=== PATIENT | female | born 1985 | race Caucasian/White ===

== ENCOUNTER 2016-11-12 17:09 | Emergency (ER) | payer SELFPAY ==
[~2016-11-12] VITALS: Ht 160 cm; Wt 56.7 kg
[~2016-11-12 17:09] MED LIST: ACET325T96 PO; BUTA1CAP17 PO; POTA99TA
[2016-11-12 17:17] VITALS: TEMP 36.8; Ht 160 cm; Wt 56.7 kg
[2016-11-12] MEDS ORDERED: ALPRAZOLAM 0.5 MG TAB PO STA (17:26)
[2016-11-12 17:50] LABS: ALT/SGPT 25 U/L (12-78); AST/SGOT 15 U/L (15-37); BLOOD UREA NITROGEN 9 mg/dl (7-18); BUN/CREATININE RATIO 10.7 (10-20); CARBON DIOXIDE 26 mmol/L (21-32); CHLORIDE 106 mmol/L (98-107); CREATININE 0.82 mg/dl (0.60-1.20); GLUCOSE 101 mg/dl (70-99); POTASSIUM 3.5 mmol/L (3.5-5.1); SODIUM 139 mmol/L (136-145)
[2016-11-12] MEDS ORDERED: NAPR1TAB9 PO (17:51)
[2016-11-12 17:53] LABS: ALKALINE PHOSPHATASE 64 U/L (45-117)
--- NOTE | 2016-11-12 17:59 | DIAGNOSTIC IMAGING REPORT ---
CHEST ONE VIEW PORTABLE CLINICAL HISTORY: Chest pain. COMPARISON STUDY: Chest radiograph December 26, 2015. FINDINGS: Lung volumes are normal. Lungs are clear. There is no pneumothorax or pleural effusion. Cardiac size is normal. Mediastinal contours are normal. There is no evidence of pulmonary edema. IMPRESSION: No acute cardiopulmonary findings. Electronically signed by: Scott Allison M.D. 11/12/2016 5:57 PM Dictated Date/Time: 11/12/2016 5:56 PM
[2016-11-12 18:06] LABS: PREG INTERNAL NEGATIVE QC NEG CLEAR BACKGROUND; PREG INTERNAL POSITIVE QC POS CONTROL LINE
[2016-11-12 18:07] LABS: BASO % 0.3 %; BASO ABS # 0.02 K/uL (0-0.2); COMPLETE YES; EOS % 1.8 %; HEMATOCRIT 40.6 % (37-47); LYMPH % 41.6 %; LYMPH ABS # 2.56 K/uL (1.2-3.4); MEAN CELL VOLUME 95.5 fL (80-100); MEAN CORPUSCULAR HEMOGLOBIN 33.6 pg (25-34); MEAN CORPUSCULAR HGB CONC 35.2 g/dl (32-36); MEAN PLATELET VOLUME 9.6 fL (7.4-10.4); MONO % 12.7 %; NEUT % 43.6 %; PLATELET COUNT 266 K/uL (130-400); RED BLOOD COUNT 4.25 M/uL (4.2-5.4); WHITE BLOOD COUNT 6.15 K/uL (4.8-10.8)
[2016-11-12] MEDS ORDERED: KETOROLAC TROMETHAMINE 30 MG/ML VIAL IV STA (18:33)
[2016-11-12] MEDS ORDERED: ONDANSETRON INJ 2 MG/ML 2 ML VIAL IV STA (18:33)
[2016-11-12] MEDS ORDERED: OXYCODONE/ACETAMINOPHEN 5-325 TAB PO ONE (19:45)
[2016-11-12 19:52] VITALS: BP 108/76; PULSE 84; O2SAT 97
--- NOTE | 2016-11-12 20:10 | EMERGENCY ROOM VISIT NOTE ---
History First contact with patient: 17:14 Chief Complaint: CHEST PAIN Stated Complaint: CHEST PAIN, NECK PAIN Nursing Triage Summary: left sided chest pain for 3 days that gets worse with laying down with nausea and tightness in her chest and a cough History of Present Illness The patient is a 31 year old female who presents to the Emergency Room with complaints of chest pain with nausea that is worse with breathing for the past few days that is steadily getting worse described as discomfort, 6 out of 10 midsternal. Nothing makes it better. Patient does smoke. There is a family history of DVTs. Her grandmother on her mother's side had a heart attack in her 40s. Patient denies recent travel, control, fever, chills, productive cough, leg pain or swelling, abdominal pain, radiating pain, numbness , tingling. Patient has been more stressed lately and has been suffering over the loss of her dog. Review of Systems See HPI for pertinent positives & negatives. A total of 10 systems reviewed and were otherwise negative. Past Medical/Surgical History Medical Problems: (1) ACUTE APPENDICITIS NOS (2) Asthma (3) DISLOCATION JAW-CLOSED (4) Esophageal Reflux (5) Ovarian Cyst Nec/Nos Family History Cancer Diabetes mellitus FH: heart disease FHx: gallbladder disease Hypertension Pyelonephritis Social History Smoking Status: Current Every Day Smoker Alcohol Use: occasionally Drug Use: none Marital Status: in relationship Housing Status: lives with significant other Occupation Status: employed Current/Historical Medications Scheduled Multivitamin (Multivitamin), 1 TAB PO DAILY Scheduled PRN Naproxen (Aleve), 220 MG PO DIRECTED PRN for Pain Miscellaneous Medications Potassium (Potassium) Allergies Coded Allergies: Hydromorphone (Verified Allergy, Mild, 11/12/16) Lorazepam (Verified Allergy, Unknown, UNKNOWN, 12/26/15) Morphine (Verified Allergy, Unknown, 11/12/16) Physical Exam Vital Signs Date Time Temp Pulse Resp B/P Pulse Ox O2 Delivery O2 Flow Rate FiO2 11/12/16 19:52 84 20 108/76 97 Room Air 11/12/16 18:35 74 20 114/75 98 Room Air 11/12/16 17:46 75 20 114/75 96 Room Air 11/12/16 17:30 Room Air 11/12/16 17:28 Room Air 11/12/16 17:27 73 11/12/16 17:17 36.8 79 20 139/96 100 Room Air Physical Exam VITALS: Vitals are noted on the nurse's note and reviewed by myself. Vital signs stable. GENERAL: Pleasant female tearful, in no acute distress, nondiaphoretic, well- developed well-nourished. SKIN: The skin was without rashes, erythema, edema, or bruising. There is no tenting of the skin. Capillary reflex less than 2 seconds. HEAD: Normocephalic atraumatic. EARS: External auditory canals clear, tympanic membranes pearly cintron without erythema or effusion bilaterally. EYES: Pupils equal round and reactive to light and accommodation. Conjunctivae without injection, sclerae without icterus. Extraocular movements intact. NOSE: Patent, turbinates without inflammation or discharge. MOUTH: Mucous membranes moist. Pharynx without erythema or exudate. Uvula midline. Airway patent. Tongue does not deviate. NECK: Supple without nuchal rigidity. No lymphadenopathy. No thyromegaly. Cervical spine is nontender. No JVD. HEART: Regular rate and rhythm without murmurs gallops or rubs. Chest nontender to palpation LUNGS: Clear to auscultation bilaterally without wheezes, rales or rhonchi. No dullness to percussion. No retractions or accessory muscle use. ABDOMEN: Positive bowel sounds x 4. Normal tympanic percussion. Soft, nontender, without masses or organomegaly. Uribe sign negative. No guarding or rebound tenderness. MUSCULOSKELETAL: No muscle atrophy, erythema, or edema noted. NEURO: Patient was alert and oriented to person place and time. Normal sensation to light and sharp touch. No focal neurological deficits. Medical Decision & Procedures Laboratory Results 11/12/16 16:25 Red Blood Count 4.25, Mean Corpuscular Volume 95.5, Mean Corpuscular Hemoglobin 33.6, Mean Corpuscular Hemoglobin Concent 35.2, Mean Platelet Volume 9.6, Neutrophils (%) (Auto) 43.6, Lymphocytes (%) (Auto) 41.6, Monocytes (%) (Auto) 12.7, Eosinophils (%) (Auto) 1.8, Basophils (%) (Auto) 0.3, Neutrophils # (Auto ) 2.68, Lymphocytes # (Auto) 2.56, Monocytes # (Auto) 0.78, Eosinophils # (Auto ) 0.11, Basophils # (Auto) 0.02 11/12/16 16:25 Test 11/12/16 16:25 11/12/16 17:32 White Blood Count 6.15 K/uL (4.8-10.8) Red Blood Count 4.25 M/uL (4.2-5.4) Hemoglobin 14.3 g/dL (12.0-16.0) Hematocrit 40.6 % (37-47) Mean Corpuscular Volume 95.5 fL (80-100) Mean Corpuscular Hemoglobin 33.6 pg (25-34) Mean Corpuscular Hemoglobin Concent 35.2 g/dl (32-36) Platelet Count 266 K/uL (130-400) Mean Platelet Volume 9.6 fL (7.4-10.4) Neutrophils (%) (Auto) 43.6 % Lymphocytes (%) (Auto) 41.6 % Monocytes (%) (Auto) 12.7 % Eosinophils (%) (Auto) 1.8 % Basophils (%) (Auto) 0.3 % Neutrophils # (Auto) 2.68 K/uL (1.4-6.5) Lymphocytes # (Auto) 2.56 K/uL (1.2-3.4) Monocytes # (Auto) 0.78 K/uL (0.11-0.59) Eosinophils # (Auto) 0.11 K/uL (0-0.5) Basophils # (Auto) 0.02 K/uL (0-0.2) RDW Standard Deviation 44.5 fL (36.4-46.3) RDW Coefficient of Variation 12.8 % (11.5-14.5) Immature Granulocyte % (Auto) 0.0 % Immature Granulocyte # (Auto) 0.00 K/uL (0.00-0.02) Anion Gap 7.0 mmol/L (3-11) Est Creatinine Clear Calc Drug Dose 82.2 ml/min Estimated GFR () 110.5 Estimated GFR (Non- 95.4 BUN/Creatinine Ratio 10.7 (10-20) Calcium Level 9.0 mg/dl (8.5-10.1) Total Bilirubin 0.4 mg/dl (0.2-1) Direct Bilirubin < 0.1 mg/dl (0-0.2) Aspartate Amino Transf (AST/SGOT) 15 U/L (15-37) Alanine Aminotransferase (ALT/SGPT) 25 U/L (12-78) Alkaline Phosphatase 64 U/L (45-117) Total Protein 8.9 gm/dl (6.4-8.2) Albumin 4.8 gm/dl (3.4-5.0) Lipase 137 U/L (73-393) Human Chorionic Gonadotropin, Qual NEG (NEG) Bedside D-Dimer 271 ng/mlFEU (0-450) Bedside Troponin I 0.000 ng/ml (0-0.045) Medications Administered Medications (Trade) Dose Ordered Sig/Helen Route Start Time Stop Time Status Last Admin Dose Admin Alprazolam (Xanax Tab) 0.5 mg NOW STAT PO 11/12/16 17:26 11/12/16 17:29 DC 11/12/16 17:35 0.5 MG Ondansetron HCl (Zofran Inj) 4 mg NOW STAT IV 11/12/16 18:33 11/12/16 18:34 DC 11/12/16 18:51 4 MG Ketorolac Tromethamine (Toradol Inj) 30 mg NOW STAT IV 11/12/16 18:33 11/12/16 18:34 DC 11/12/16 18:51 30 MG Oxycodone/ Acetaminophen (Percocet 5-325mg Tab) 1 tab NOW ONCE PO 11/12/16 19:45 11/12/16 19:46 DC 11/12/16 19:51 1 TAB ED Course Prior records/ancillary studies reviewed. Triage Nursing notes reviewed. Additional history obtained from family. The patient's history was concerning for chest pain. Differential diagnosis: Etiologies such as cardiac ischemia, aortic dissection, pulmonary embolism, pneumonia, pneumothorax, musculoskeletal, infections, pericarditis, myocarditis , esophageal rupture, gastrointestinal, as well as others were entertained. Physical examination: As above. ER treatment provided: Xanax On reassessment the patient felt better. Diagnostic interpretation by me: The electrocardiogram was negative for pathologic change. Normal sinus, normal intervals, no acute ST-T wave changes. Impression normal sinus rhythm interpreted by myself The labs revealed negative troponin. Negative d-dimer Imaging studies: Chest x-ray with no acute consolidation, pneumothorax or free air per my interpretation Exam and history seem consistent with noncardiac chest pain. Patient is well- appearing. She is neurovascularly and neurologically intact. Unremarkable workup as above. She is advised to rest, stay well hydrated, decrease stress and follow-up family care in a few days or here in the ER sooner for chest pain , difficulty breathing, worsening signs or symptoms or as needed.By the evaluation outlined above emergent etiologies such as cardiac ischemia, aortic dissection, pulmonary embolism, pneumonia, pneumothorax, infections, pericarditis, myocarditis, gastrointestinal, as well as others were deemed relatively unlikely. The pt informed about the findings as listed above. All questions were answered and pleased with the treatment. Return instructions were outlined and the patient was discharged in stable condition. Referral: The patient was referred back to primary care physician for follow-up in 2 to 3 days for a recheck of the current condition. Case reviewed with my attending Medical Decision As above Impression Primary Impression: Non-cardiac chest pain Departure Information Dispostion Home / Self-Care Condition GOOD Referrals No Doctor, Assigned (PCP) Patient Instructions [facility] Additional Instructions Ibuprofen(Motrin, Advil) may be used for fever or pain. Use 600mg every six hours as needed. Take with food. Avoid using more than 2400mg in a 24 hour period. Do not use 2400mg per day for more than three consecutive days without physician direction. Prolonged inappropriate use can lead to stomach upset or ulcers. (AND/OR) Acetaminophen(Tylenol) may be used for fever or pain. Use 1000mg every six hours as needed. Avoid using more than 3000mg in a 24 hour period. Rest and drink plenty of fluids as tolerated. Continue current medications. Avoid strenuous activities and anything that worsens your pain. Resume normal activities once your symptoms resolve. Return to the ER immediately for worsening or persistent chest pain, abdominal pain, vomiting, fevers, chest pains, difficulty breathing, worsening of your condition, or as needed. Follow up with your primary physician in 2-3 days for a recheck of your current condition.
[2016-11-12] MEDS ORDERED: PERCOCET HOME PACK PO ONE (20:15)
[2017-05-06] MEDS ORDERED: MULT-506 PO (17:10)
[2017-06-07] MEDS ORDERED: AMOX500C3 PO (02:06)
== END 2016-11-12 20:23 | disposition home or self-care (01) ==
LOC: C.EDB 17:09
DX: R07.89 Other chest pain (principal); J45.909 Unspecified asthma, uncomplicated; Z83.3 Family history of diabetes mellitus; Z82.49 Family history of ischemic heart disease and other diseases of the circulatory system; F17.200 Nicotine dependence, unspecified, uncomplicated

== ENCOUNTER 2017-04-01 19:29 | Emergency (ER) | payer SELFPAY ==
[~2017-04-01] VITALS: Ht 167.6 cm; Wt 51.5 kg
[~2017-04-01 19:29] MED LIST changes: -ACET325T96 PO; -BUTA1CAP17 PO; +NAPR1TAB9 PO
[2017-04-01 19:39] VITALS: TEMP 36.8; Ht 167.6 cm; Wt 51.5 kg
[2017-04-01] MEDS ORDERED: SODIUM CHLORIDE 0.9% 1000ML 1,000 ML IV STA (19:53)
[2017-04-01] MEDS ORDERED: ONDANSETRON INJ 2 MG/ML 2 ML VIAL IV STA (19:53)
[2017-04-01] MEDS ORDERED: KETOROLAC TROMETHAMINE 30 MG/ML VIAL IV STA (19:53)
[2017-04-01 20:30] LABS: BASO % 0.4 %; BASO ABS # 0.03 K/uL (0-0.2); COMPLETE YES; EOS % 1.3 %; HEMATOCRIT 42.4 % (37-47); IG% 0.3 %; LYMPH % 38.2 %; LYMPH ABS # 2.83 K/uL (1.2-3.4); MEAN CELL VOLUME 97.2 fL (80-100); MEAN PLATELET VOLUME 9.8 fL (7.4-10.4); MONO % 7.4 %; NEUT % 52.4 %; PLATELET COUNT 280 K/uL (130-400); RED BLOOD COUNT 4.36 M/uL (4.2-5.4); WHITE BLOOD COUNT 7.41 K/uL (4.8-10.8)
[2017-04-01 20:38] LABS: BUN/CREATININE RATIO 5.5 (10-20); CALCIUM 9.5 mg/dl (8.5-10.1); CREATININE 0.78 mg/dl (0.60-1.20); POTASSIUM 3.6 mmol/L (3.5-5.1)
--- NOTE | 2017-04-01 20:53 | DIAGNOSTIC IMAGING REPORT ---
ABDOMEN 2VIEW W/PA CHEST RTN HISTORY: 32 years-old Female acute abdominal pain COMPARISON: Portable chest radiograph 11/12/2016 TECHNIQUE: Frontal view of the chest with erect and supine views of the abdomen FINDINGS: Cardiomediastinal and hilar silhouettes are within normal limits. No pneumothorax, pleural effusion, focal airspace consolidation or overt pulmonary edema. The bones are grossly intact. No pneumoperitoneum on the upright projection. Bowel gas pattern is nonobstructive. Negative for urolithiasis. Probable phleboliths are noted within the pelvis. No organomegaly. IMPRESSION: 1. No acute cardiopulmonary process. 2. Nonobstructive bowel gas pattern without pneumoperitoneum. 3. No urolithiasis identified. The above report was generated using voice recognition software. It may contain grammatical, syntax or spelling errors. Electronically signed by: Fuad Hernandez M.D. 04/01/2017 8:52 PM Dictated Date/Time: 04/01/2017 8:50 PM
--- NOTE | 2017-04-01 21:45 | DIAGNOSTIC IMAGING REPORT ---
PELVIC COMPLETE NON OB HISTORY: 32 years-old Female acute right lower quadrant abdominal pain COMPARISON: Pelvic ultrasound 08/30/2013 TECHNIQUE: Multiple real-time sonographic images of the deep pelvic structures were obtained transabdominally and transvaginally assessing grayscale appearance, color and spectral flow. FINDINGS: Study is limited secondary to obscuring bowel gas. Transabdominal: Uterus is not well seen. Transvaginal: Retroflexed uterus measures 6.9 x 2.7 x 4.5 cm. Endometrium is homogeneous, 0.3 cm. No focal myometrial mass lesions identified. There is trace free pelvic fluid in the cul-de-sac. Right ovary measures 4.0 x 1.7 x 3.2 cm containing multiple follicles. Echogenic structure within the right ovary is seen measuring up to 0.7 cm without posterior acoustic shadowing or internal vascularity. Arterial inflow and venous outflow documented within the right ovary. Left ovary measures 3.6 x 1.4 x 2.4 cm containing normal-appearing follicles. Arterial inflow and venous outflow is documented within the left ovary. IMPRESSION: 1. No evidence of ovarian torsion. 2. Retroflexed uterus without endometrial thickening. 3. 0.7 cm echogenic structure of the right ovary suggests involuting/hemorrhagic follicle. 4. Trace free pelvic fluid, likely physiologic. The above report was generated using voice recognition software. It may contain grammatical, syntax or spelling errors. Electronically signed by: Fuad Hernandez M.D. 04/01/2017 9:44 PM Dictated Date/Time: 04/01/2017 9:40 PM
[2017-04-01 21:51] LABS: URINE APPEARANCE CLEAR (CLEAR); URINE BILIRUBIN NEG (NEG); URINE COLOR YELLOW; URINE NITRITE NEG (NEG); URINE PH 7.5 (4.5-7.5); URINE SPECIFIC GRAVITY 1.005 (1.000-1.030); UROBILINOGEN NEG (NEG); ZZUR CULT IF INDIC CLEAN CATCH NO
[2017-04-01 21:52] LABS: MANUAL MICROSCOPIC REQUIRED? NO; REVIEW REQ? NO
[2017-04-01 22:20] VITALS: BP 133/75; PULSE 67; O2SAT 99
--- NOTE | 2017-04-02 01:26 | EMERGENCY ROOM VISIT NOTE ---
History Report prepared by Maryellen: Marissa Hauser Under the Supervision of: Dr. Tavo Riojas D.O. First contact with patient: 19:44 Chief Complaint: ABDOMINAL PAIN Stated Complaint: CHEST AND BELLY PAIN History of Present Illness The patient is a 32 year old female who presents to the Emergency Room with complaints of worsening RLQ abdominal pain starting 3 days ago. She first noticed the pain when she woke up in the morning 3 days ago. Since then, the pain has worsened. It worsens around 20 minutes after eating and with heavy lifting. As the pain has worsened, even doing light housework worsens her pain. She has felt some swelling in her abdomen in the RLQ. She has a history of appendectomy. She has had ovarian torsion in the past, but her current pain is dissimilar. She still has her gallbladder. She just finished her menstrual cycle. She is also complaining of right lower back pain. She notes that this has been there for the past 2 years. The pain radiates into her right gluteus. Movement along with twisting and turning exacerbates the pain. She notes that this is unchanged from what she has had before in the past. She has no new weakness or numbness. She is able to void. She is able to move her bowels. She also started having chest pain starting 1300 today. She describes the pain as a heaviness. She also had SOB which is typical for her when she becomes anxious. She denies any dysuria, calf swelling, vaginal bleeding, or vaginal discharge. She denies any recent travel or surgery, hemoptysis, swelling of legs, cancer, or previous clots. She denies any history of diabetes , heart disease, high cholesterol, or CAD. She denies any history of sudden in her family. She has a history of asthma. She admits to occasional alcohol use. She denies any drug use. She does smoke. She is not employed. She is not on control. Source of History: patient Onset: 3 days ago Position: abdomen (RLQ) Quality: other (pain) Timing: worsening Modifying Factors (Worsening): eating, movement Associated Symptoms: + chest pain, + SOB, + numbness (right hand), No urinary symptoms Note: Pt reports right arm pain. Pt denies calf swelling, vaginal bleeding, vaginal discharge. Review of Systems See HPI for pertinent positives & negatives. A total of 10 systems reviewed and were otherwise negative. Past Medical & Surgical Medical Problems: (1) ACUTE APPENDICITIS NOS (2) Asthma (3) DISLOCATION JAW-CLOSED (4) Esophageal Reflux (5) Ovarian Cyst Nec/Nos Family History Cancer Diabetes mellitus FH: heart disease FHx: gallbladder disease Hypertension Pyelonephritis Social History Smoking Status: Current Every Day Smoker Alcohol Use: occasionally Drug Use: none Marital Status: in relationship Housing Status: lives with significant other Occupation Status: employed Current/Historical Medications Scheduled Multivitamin (Multivitamin), 1 TAB PO DAILY Miscellaneous Medications Potassium (Potassium) Allergies Coded Allergies: Hydromorphone (Verified Allergy, Mild, 04/01/17) Lorazepam (Verified Allergy, Unknown, UNKNOWN, 04/01/17) Morphine (Verified Allergy, Unknown, 04/01/17) Physical Exam Vital Signs Date Time Temp Pulse Resp B/P (MAP) Pulse Ox O2 Delivery O2 Flow Rate FiO2 04/01/17 22:20 67 16 133/75 99 Room Air 04/01/17 21:27 72 16 120/82 97 Room Air 04/01/17 19:39 36.8 83 18 146/98 100 Room Air Physical Exam GENERAL: sitting up in bed, tearful, minimal distress, nontoxic EYE EXAM: normal conjunctiva OROPHARYNX: no exudate, no erythema, lips, buccal mucosa, and tongue normal and mucous membranes are moist NECK: supple, no nuchal rigidity, no adenopathy, non-tender CHEST: Reproducible right-sided upper chest wall pain tracking into anterior aspect of humerus LUNGS: Clear to auscultation. Normal chest wall mechanics HEART: no murmurs, S1 normal and S2 normal ABDOMEN: abdomen soft, non-tender, normo-active bowel sounds, no masses, no rebound or guarding. BACK: Back is symmetrical on inspection and there is no deformity, no midline tenderness, no CVA tenderness. Tenderness to palpation in right lower back tracking into upper portion of right gluteus PELVIC: Declined. SKIN: no rashes and no bruising UPPER EXTREMITIES: upper extremities are grossly normal. LOWER EXTREMITIES: No pitting edema. NEURO EXAM: Normal sensorium, cranial nerves II-XII grossly intact, normal speech, no gross weakness of arms, no gross weakness of legs. Medical Decision & Procedures ER Provider Diagnostic Interpretation: Radiology results as stated below per my review and the radiologist's interpretation: ABDOMEN 2VIEW W/PA CHEST RTN HISTORY: 32 years-old Female acute abdominal pain COMPARISON: Portable chest radiograph 11/12/2016 TECHNIQUE: Frontal view of the chest with erect and supine views of the abdomen FINDINGS: Cardiomediastinal and hilar silhouettes are within normal limits. No pneumothorax, pleural effusion, focal airspace consolidation or overt pulmonary edema. The bones are grossly intact. No pneumoperitoneum on the upright projection. Bowel gas pattern is nonobstructive. Negative for urolithiasis. Probable phleboliths are noted within the pelvis. No organomegaly. IMPRESSION: 1. No acute cardiopulmonary process. 2. Nonobstructive bowel gas pattern without pneumoperitoneum. 3. No urolithiasis identified. The above report was generated using voice recognition software. It may contain grammatical, syntax or spelling errors. Electronically signed by: Fuad Hernandez M.D. 04/01/2017 8:52 PM Dictated Date/Time: 04/01/2017 8:50 PM PELVIC COMPLETE NON OB HISTORY: 32 years-old Female acute right lower quadrant abdominal pain COMPARISON: Pelvic ultrasound 08/30/2013 TECHNIQUE: Multiple real-time sonographic images of the deep pelvic structures were obtained transabdominally and transvaginally assessing grayscale appearance, color and spectral flow. FINDINGS: Study is limited secondary to obscuring bowel gas. Transabdominal: Uterus is not well seen. Transvaginal: Retroflexed uterus measures 6.9 x 2.7 x 4.5 cm. Endometrium is homogeneous, 0.3 cm. No focal myometrial mass lesions identified. There is trace free pelvic fluid in the cul-de-sac. Right ovary measures 4.0 x 1.7 x 3.2 cm containing multiple follicles. Echogenic structure within the right ovary is seen measuring up to 0.7 cm without posterior acoustic shadowing or internal vascularity. Arterial inflow and venous outflow documented within the right ovary. Left ovary measures 3.6 x 1.4 x 2.4 cm containing normal-appearing follicles. Arterial inflow and venous outflow is documented within the left ovary. IMPRESSION: 1. No evidence of ovarian torsion. 2. Retroflexed uterus without endometrial thickening. 3. 0.7 cm echogenic structure of the right ovary suggests involuting/hemorrhagic follicle. 4. Trace free pelvic fluid, likely physiologic. The above report was generated using voice recognition software. It may contain grammatical, syntax or spelling errors. Electronically signed by: Fuad Hernandez M.D. 04/01/2017 9:44 PM Dictated Date/Time: 04/01/2017 9:40 PM Laboratory Results 04/01/17 20:05 Red Blood Count 4.36, Mean Corpuscular Volume 97.2, Mean Corpuscular Hemoglobin 33.0, Mean Corpuscular Hemoglobin Concent 34.0, Mean Platelet Volume 9.8, Neutrophils (%) (Auto) 52.4, Lymphocytes (%) (Auto) 38.2, Monocytes (%) (Auto) 7.4, Eosinophils (%) (Auto) 1.3, Basophils (%) (Auto) 0.4, Neutrophils # (Auto) 3.88, Lymphocytes # (Auto) 2.83, Monocytes # (Auto) 0.55, Eosinophils # (Auto) 0.10, Basophils # (Auto) 0.03 04/01/17 20:05 Test 04/01/17 20:05 04/01/17 21:37 White Blood Count 7.41 K/uL (4.8-10.8) Red Blood Count 4.36 M/uL (4.2-5.4) Hemoglobin 14.4 g/dL (12.0-16.0) Hematocrit 42.4 % (37-47) Mean Corpuscular Volume 97.2 fL (80-100) Mean Corpuscular Hemoglobin 33.0 pg (25-34) Mean Corpuscular Hemoglobin Concent 34.0 g/dl (32-36) Platelet Count 280 K/uL (130-400) Mean Platelet Volume 9.8 fL (7.4-10.4) Neutrophils (%) (Auto) 52.4 % Lymphocytes (%) (Auto) 38.2 % Monocytes (%) (Auto) 7.4 % Eosinophils (%) (Auto) 1.3 % Basophils (%) (Auto) 0.4 % Neutrophils # (Auto) 3.88 K/uL (1.4-6.5) Lymphocytes # (Auto) 2.83 K/uL (1.2-3.4) Monocytes # (Auto) 0.55 K/uL (0.11-0.59) Eosinophils # (Auto) 0.10 K/uL (0-0.5) Basophils # (Auto) 0.03 K/uL (0-0.2) RDW Standard Deviation 44.6 fL (36.4-46.3) RDW Coefficient of Variation 12.6 % (11.5-14.5) Immature Granulocyte % (Auto) 0.3 % Immature Granulocyte # (Auto) 0.02 K/uL (0.00-0.02) Anion Gap 6.0 mmol/L (3-11) Est Creatinine Clear Calc Drug Dose 84.2 ml/min Estimated GFR () 116.6 Estimated GFR (Non- 100.6 BUN/Creatinine Ratio 5.5 (10-20) Calcium Level 9.5 mg/dl (8.5-10.1) Total Bilirubin 0.3 mg/dl (0.2-1) Direct Bilirubin 0.1 mg/dl (0-0.2) Aspartate Amino Transf (AST/SGOT) 15 U/L (15-37) Alanine Aminotransferase (ALT/SGPT) 21 U/L (12-78) Alkaline Phosphatase 70 U/L (45-117) Total Protein 8.3 gm/dl (6.4-8.2) Albumin 4.3 gm/dl (3.4-5.0) Lipase 137 U/L (73-393) Urine Color YELLOW Urine Appearance CLEAR (CLEAR) Urine pH 7.5 (4.5-7.5) Urine Specific [place] 1.005 (1.000-1.030) Urine Protein NEG (NEG) Urine Glucose (UA) NEG (NEG) Urine Ketones NEG (NEG) Urine Occult Blood NEG (NEG) Urine Nitrite NEG (NEG) Urine Bilirubin NEG (NEG) Urine Urobilinogen NEG (NEG) Urine Leukocyte Esterase NEG (NEG) Urine WBC (Auto) 0 /hpf (0-5) Urine RBC (Auto) 0-4 /hpf (0-4) Urine Hyaline Casts (Auto) 0 /lpf (0-5) Urine Epithelial Cells (Auto) 5-10 /lpf (0-5) Urine Bacteria (Auto) NEG (NEG) Urine Test NEG (NEG) Laboratory results per my review. Medications Administered Medications (Trade) Dose Ordered Sig/Helen Route Start Time Stop Time Status Last Admin Dose Admin Sodium Chloride 1,000 ml @ 999 mls/hr Q1H1M STAT IV 04/01/17 19:53 04/01/17 20:53 DC 04/01/17 20:02 999 MLS/HR Ondansetron HCl (Zofran Inj) 4 mg NOW STAT IV 04/01/17 19:53 04/01/17 19:55 DC 04/01/17 20:02 4 MG Ketorolac Tromethamine (Toradol Inj) 30 mg NOW STAT IV 04/01/17 19:53 04/01/17 19:55 DC 04/01/17 20:01 30 MG ED Course ED COURSE: Vital signs were reviewed and showed normal vitals. The patients medical record was reviewed The above diagnostic studies were performed and reviewed. ED treatments and interventions as stated above. 1945: The patient was evaluated in room C3. A complete history and physical examination was performed. 1952: Toradol Inj 30 mg IV, Zofran Inj 4 mg IV, NSS 1000 ml @ 999 mls/hr IV. 2201: Upon reevaluation, the patient is resting comfortably. She declined the pelvic exam. I discussed my findings with the patient and she understands and agrees with the treatment plan. Based on the patients age, coexisting illnesses, exam and lab findings the decision to treat as an outpatient was made. The patient remained stable while under my care. The patient appeared well at the time of discharge. Medical Decision Differential diagnoses includes but is not limited to gastritis, peptic ulcer disease, GERD, gallbladder disease, pancreatitis, small bowel obstruction, acute coronary syndrome, pericarditis, ischemic bowel, irritable bowel disease, irritable bowel syndrome, appendicitis, diverticulitis, malignancy, hernia, urinary tract infection, torsion, /ectopic , perforation, trauma, infectious. Patient is a 32-year-old female who presents to ER for right lower quadrant abdominal pain. She notes that this is worsening over the past couple days. She has a history of ovarian torsion. Previous appendectomy. On exam she does have tenderness. Ultrasound shows hemorrhagic right ovarian cysts which I favor is causing her pain. CBC along with BMP, LFTs, bilirubin and lipase was unremarkable. UA was negative. was negative. She declined a pelvic exam. Favor these symptoms are consistent with hemorrhagic ovarian cyst. She also complained of chest pain and is extremely low risk for any ischemic heart disease. Her pain was clearly reproducible on exam, consistent with musculoskeletal pain and consequently I did not pursue a cardiac workup. Lastly her lower back pain which has been present for the past several years was reproducible. It is consistent with sciatica. Encourage patient to follow up with her PCP as this appears to be a persistent and prolonged issue. Patient was given Toradol and felt significant better. Discussed with Pt concerning signs and symptoms to watch out for. Pt was instructed to follow up with their PCP and discussed with the patient their option to return to the ED at anytime for persistent or worsening symptoms. The appropriate anticipatory guidance and out-patient management, including indications for return to the emergency department, were explained at length to the patient and understood. Medication Reconcilliation Current Medication List: was personally reviewed by me Blood Pressure Screening Patient's blood pressure: Normal blood pressure Blood pressure disposition: Did not require urgent referral Impression Primary Impression: Ovarian cyst Additional Impressions: Sciatica Musculoskeletal chest pain Scribe Attestation The scribe's documentation has been prepared under my direction and personally reviewed by me in its entirety. I confirm that the note above accurately reflects all work, treatment, procedures, and medical decision making performed by me. Departure Information Dispostion Home / Self-Care Referrals No Doctor, Assigned (PCP) Forms Call Back Authorization, HOME CARE DOCUMENTATION FORM, IMPORTANT VISIT INFORMATION Patient Instructions Cyst Ruptured [facility]varian Tx, [facility] Additional Instructions Please follow up with your primary care doctor with in the next 24 hours. Any worsening of your symptoms, please return to the ED immediately. This includes any fevers greater than 100.4, worsening pain, chest pain, shortness breath, persistent nausea, vomiting, unable to eat or drink, vaginal bleeding, vaginal discharge, or any other concerning signs or symptoms from your standpoint. Please take Motrin or Tylenol as needed for ear pain. Problem Qualifiers Primary Impression: Ovarian cyst Laterality: right Qualified Codes: N83.201 - Unspecified ovarian cyst, right side Additional Impressions: Sciatica Laterality: right Qualified Codes: M54.31 - Sciatica, right side
[2017-05-06] MEDS ORDERED: MULT-506 PO (17:10)
== END 2017-04-01 22:27 | disposition home or self-care (01) ==
LOC: C.EDB 19:31 → C.EDC 22:27
DX: N83.201 Unspecified ovarian cyst, right side (principal); M54.31 Sciatica, right side; R07.89 Other chest pain; G89.29 Other chronic pain; F17.210 Nicotine dependence, cigarettes, uncomplicated; J45.909 Unspecified asthma, uncomplicated; K21.9 Gastro-esophageal reflux disease without esophagitis; Z80.9 Family history of malignant neoplasm, unspecified; Z83.3 Family history of diabetes mellitus; Z82.49 Family history of ischemic heart disease and other diseases of the circulatory system

== ENCOUNTER 2017-05-06 19:11 | Emergency (ER) | payer SELFPAY ==
[~2017-05-06] VITALS: Ht 167.6 cm; Wt 50.4 kg
[~2017-05-06 19:11] MED LIST changes: +MULT-506 PO; -NAPR1TAB9 PO
[2017-05-06 19:13] VITALS: TEMP 36.9; Ht 167.6 cm; Wt 50.4 kg
--- NOTE | 2017-05-06 19:55 | DIAGNOSTIC IMAGING REPORT ---
CHEST ONE VIEW PORTABLE HISTORY: cough COMPARISON: Chest 04/01/2017 FINDINGS: The lungs are clear. Cardiac silhouette is normal in size. No pleural effusions. No pneumothorax. IMPRESSION: No acute process. Electronically signed by: Brendan Jerry M.D. 05/06/2017 7:53 PM Dictated Date/Time: 05/06/2017 7:53 PM
[2017-05-06 19:57] LABS: BASO % 0.5 %; BASO ABS # 0.03 K/uL (0-0.2); COMPLETE YES; HEMATOCRIT 42.7 % (37-47); LYMPH % 43.2 %; LYMPH ABS # 2.65 K/uL (1.2-3.4); MEAN CELL VOLUME 95.5 fL (80-100); MEAN CORPUSCULAR HEMOGLOBIN 31.5 pg (25-34); MEAN PLATELET VOLUME 9.3 fL (7.4-10.4); MONO % 9.9 %; NEUT % 45.4 %; PLATELET COUNT 292 K/uL (130-400); RED BLOOD COUNT 4.47 M/uL (4.2-5.4); WHITE BLOOD COUNT 6.14 K/uL (4.8-10.8)
[2017-05-06 20:07] LABS: POINT OF CARE TROPONIN I < 0.030 ng/ml (0-0.045)
--- NOTE | 2017-05-06 20:08 | EMERGENCY ROOM VISIT NOTE ---
History First contact with patient: 19:19 Chief Complaint: SORETHROAT Stated Complaint: SORE THROAT, SWELLED NECK History of Present Illness The patient is a 32 year old female who presents to the Emergency Room with complaints of sore throat. The patient states that she has felt swelling to the right side of her neck for at least the last one year. She states she is also felt nauseated and dizzy for the last one year. She states that over the last week she began to develop sore throat and trouble swallowing. She states that she lost her voice today. She states her throat feels "scratchy" and rates her discomfort a 3/10. She also reports chest pressure. She states that she gets occasional sharp pains in her chest. She denies any fever. She denies any abdominal pain or vomiting. She denies any urinary symptoms. The patient states that she was supposed to be taking thyroid medication but does not have insurance and has not seen a doctor. She has not been taking it for at least one year. Review of Systems A 10 system review of systems was completed with positives and pertinent negatives listed in the HPI. Past Medical/Surgical History Medical Problems: (1) ACUTE APPENDICITIS NOS (2) Asthma (3) DISLOCATION JAW-CLOSED (4) Esophageal Reflux (5) Ovarian Cyst Nec/Nos Family History Cancer Diabetes mellitus FH: heart disease FHx: gallbladder disease Hypertension Pyelonephritis Social History Smoking Status: Current Every Day Smoker Alcohol Use: occasionally Drug Use: none Marital Status: in relationship Housing Status: lives with significant other Occupation Status: employed Current/Historical Medications Scheduled Amoxicillin (Amoxil), 500 MG PO TID Maalox/Diphen/Visc. Jayce/Glyc (Magic Swizzle), 10 ML PO TID Multivitamin (Multivitamin), 1 TAB PO DAILY Scheduled PRN Lorazepam (Ativan), 1 TAB PO Q6H PRN for Anxiety/Agitation Physical Exam Vital Signs Date Time Temp Pulse Resp B/P (MAP) Pulse Ox O2 Delivery O2 Flow Rate FiO2 05/06/17 19:58 70 05/06/17 19:17 99 Room Air 05/06/17 19:13 36.9 85 18 132/89 99 Room Air Physical Exam VITALS: Vitals are noted on the nurse's note and reviewed by myself. Vital signs stable. The patient is afebrile. Her oxygen saturation is 99% on room air. GENERAL: This is a 32-year-old female, in no acute distress, nondiaphoretic, well-developed well-nourished. SKIN: The skin was without rashes, erythema, edema, or bruising. There is no tenting of the skin. Capillary reflex less than 2 seconds. HEAD: Normocephalic atraumatic. EARS: External auditory canals clear, tympanic membranes pearly cintron without erythema or effusion bilaterally. EYES: Pupils equal round and reactive to light and accommodation. Conjunctivae without injection, sclerae without icterus. Extraocular movements intact. NOSE: Patent, turbinates without inflammation or discharge. MOUTH: Mucous membranes moist. Tonsils are not enlarged. Minimal posterior pharyngeal erythema. There is no exudate. There are no ulcerations. Uvula midline. Airway patent. Tongue does not deviate. NECK: Supple without nuchal rigidity. Right anterior cervical lymphadenopathy. No thyromegaly. Cervical spine is nontender. No JVD. HEART: Regular rate and rhythm without murmurs gallops or rubs. LUNGS: Clear to auscultation bilaterally without wheezes, rales or rhonchi. No retractions or accessory muscle use. ABDOMEN: Positive bowel sounds x 4. Soft, nontender, without masses or organomegaly. MUSCULOSKELETAL: No muscle atrophy, erythema, or edema noted. Full range of motion in all extremities. No tenderness to palpation. Normal gait. Strength 5/5 throughout. NEURO: Patient was alert and oriented to person place and time. No focal neurological deficits. Medical Decision & Procedures Laboratory Results 05/06/17 19:40 Red Blood Count 4.47, Mean Corpuscular Volume 95.5, Mean Corpuscular Hemoglobin 31.5, Mean Corpuscular Hemoglobin Concent 33.0, Mean Platelet Volume 9.3, Neutrophils (%) (Auto) 45.4, Lymphocytes (%) (Auto) 43.2, Monocytes (%) (Auto) 9.9, Eosinophils (%) (Auto) 1.0, Basophils (%) (Auto) 0.5, Neutrophils # (Auto) 2.79, Lymphocytes # (Auto) 2.65, Monocytes # (Auto) 0.61, Eosinophils # (Auto) 0.06, Basophils # (Auto) 0.03 05/06/17 19:40 Test 10/5/17 19:40 05/06/17 19:52 05/06/17 20:03 White Blood Count 6.14 K/uL (4.8-10.8) Red Blood Count 4.47 M/uL (4.2-5.4) Hemoglobin 14.1 g/dL (12.0-16.0) Hematocrit 42.7 % (37-47) Mean Corpuscular Volume 95.5 fL (80-100) Mean Corpuscular Hemoglobin 31.5 pg (25-34) Mean Corpuscular Hemoglobin Concent 33.0 g/dl (32-36) Platelet Count 292 K/uL (130-400) Mean Platelet Volume 9.3 fL (7.4-10.4) Neutrophils (%) (Auto) 45.4 % Lymphocytes (%) (Auto) 43.2 % Monocytes (%) (Auto) 9.9 % Eosinophils (%) (Auto) 1.0 % Basophils (%) (Auto) 0.5 % Neutrophils # (Auto) 2.79 K/uL (1.4-6.5) Lymphocytes # (Auto) 2.65 K/uL (1.2-3.4) Monocytes # (Auto) 0.61 K/uL (0.11-0.59) Eosinophils # (Auto) 0.06 K/uL (0-0.5) Basophils # (Auto) 0.03 K/uL (0-0.2) RDW Standard Deviation 45.0 fL (36.4-46.3) RDW Coefficient of Variation 12.9 % (11.5-14.5) Immature Granulocyte % (Auto) 0.0 % Immature Granulocyte # (Auto) 0.00 K/uL (0.00-0.02) Anion Gap 5.0 mmol/L (3-11) Est Creatinine Clear Calc Drug Dose 79.3 ml/min Estimated GFR () 111.4 Estimated GFR (Non- 96.1 BUN/Creatinine Ratio 6.9 (10-20) Calcium Level 9.1 mg/dl (8.5-10.1) Total Bilirubin 0.3 mg/dl (0.2-1) Aspartate Amino Transf (AST/SGOT) 13 U/L (15-37) Alanine Aminotransferase (ALT/SGPT) 16 U/L (12-78) Alkaline Phosphatase 66 U/L (45-117) Total Protein 8.1 gm/dl (6.4-8.2) Albumin 4.1 gm/dl (3.4-5.0) Globulin 4.0 gm/dl (2.5-4.0) Albumin/Globulin Ratio 1.0 (0.9-2) Thyroid Stimulating Hormone (TSH) 2.000 uIu/ml (0.300-4.500) Monoscreen NEG (NEG) Bedside D-Dimer 181 ng/mlFEU (0-450) Bedside Troponin I < 0.030 ng/ml (0-0.045) Urine Color YELLOW Urine Appearance CLEAR (CLEAR) Urine pH 6.5 (4.5-7.5) Urine Specific [place] 1.024 (1.000-1.030) Urine Protein NEG (NEG) Urine Glucose (UA) NEG (NEG) Urine Ketones TRACE (NEG) Urine Occult Blood NEG (NEG) Urine Nitrite NEG (NEG) Urine Bilirubin NEG (NEG) Urine Urobilinogen NEG (NEG) Urine Leukocyte Esterase NEG (NEG) Urine Test NEG (NEG) ED Course The patient was seen and examined. Previous visits were reviewed. The patient does not have a fever or leukocytosis. Atmyu-un-fret troponin and point of care d-dimer are not elevated. Chest x-ray is negative. TSH is within normal limits. Urinalysis is negative for urinary tract infection. Rapid strep was negative. The patient presents to the emergency department primarily complaining of sore throat, swelling to the right side of the neck, possible strep. She later complained of chest pressure, weight loss over the last several years, not taking her thyroid medication over the last year. She complained of dizziness and nausea for the last year. She states she has had swelling to the neck for the last year. The upper respiratory symptoms seemed to start earlier this week. Therefore, the evaluation above was initiated. The patient does agree that this may be related to anxiety. She states that she has been under a lot of stress. She has an appointment with [place] [facility] on Wednesday and is encouraged to keep this appointment. She has had sore throat, cough and noticed a swollen lymph node in the right anterior neck just this week. She also has very poor dentition. These symptoms could be secondary to her dental decay. She'll be placed on amoxicillin and given Magic swizzle. She will be given a very small prescription of Ativan for the underlying anxiety and possible panic attacks. She should return to the emergency department over the weekend if her symptoms are worsening. The case was discussed with Dr. Romero who agrees with the assessment and treatment plan. Medical Decision DIFFERENTIAL DIAGNOSIS: Aortic dissection, myocarditis, pericarditis, cervical disc disease, costochondritis, herpes zoster, rib fracture, pleuritis, pneumonia , pulmonary embolus, tension pneumothorax, anxiety disorder, somatoform disorder , choledocholithiasis, status, esophagitis, esophageal spasm, esophageal reflux , esophageal rupture, pancreatitis, peptic ulcer disease, cardiac ischemia, ST elevation VT, acute coronary syndrome, arrhythmia, coronary artery vasospasm. vavular heart disease, coronary artery disease, viral illness, strep pharyngitis , among others. Blood Pressure Screening Patient's blood pressure: Elevated blood pressure Blood pressure disposition: Elevated BP felt to be situational Impression Primary Impression: Sorethroat Additional Impression: Anxiety Departure Information Dispostion Home / Self-Care Condition GOOD Prescriptions Maalox/Diphen/Visc. Jayce/Glyc (Magic Swizzle) 240 Ml Btl 10 ML PO TID, #1 BTL Equal parts benadryl, maalox, lidocaine Prov: Denisa Mackenzie PA-C 05/06/17 Amoxicillin (AMOXIL) 500 Mg Tab 500 MG PO TID for 10 Days, #30 TAB Prov: Denisa Mackenzie PA-C 05/06/17 Lorazepam (ATIVAN) 1 Mg Tab 1 TAB PO Q6H Y for Anxiety/Agitation, #12 TAB Prov: Denisa Mackenzie PA-C 05/06/17 Referrals [facility] (PCP) Patient Instructions [facility] Additional Instructions Amoxicillin as prescribed, until finished Magic swizzle as prescribed if needed for sore throat Ativan only as needed, as prescribed [facility] as scheduled Return to the ER in the meantime if symptoms worsen over the weekend Problem Qualifiers
[2017-05-06 20:15] LABS: BUN/CREATININE RATIO 6.9 (10-20); CALCIUM 9.1 mg/dl (8.5-10.1); CREATININE 0.81 mg/dl (0.60-1.20); POTASSIUM 3.3 mmol/L (3.5-5.1)
[2017-05-06 20:23] LABS: URINE APPEARANCE CLEAR (CLEAR); URINE BILIRUBIN NEG (NEG); URINE COLOR YELLOW; URINE NITRITE NEG (NEG); URINE PH 6.5 (4.5-7.5); URINE SPECIFIC GRAVITY 1.024 (1.000-1.030); UROBILINOGEN NEG (NEG); ZZUR CULT IF INDIC CLEAN CATCH NO
[2017-05-06 20:26] LABS: MANUAL MICROSCOPIC REQUIRED? NO; REVIEW REQ? NO
[2017-05-06] MEDS ORDERED: ATV/1 PO (20:42)
[2017-05-06] MEDS ORDERED: AMOX500T3 PO (20:42)
[2017-05-06] MEDS ORDERED: MGCS/ PO (20:42)
[2017-05-06] MEDS ORDERED: AMOXICILLIN HOME PACK 250 MG/TAB PO ONE (21:00)
[2017-05-06] MEDS ORDERED: ATIVAN 1MG HOMEPACK PO ONE (21:00)
[2017-05-06 21:18] VITALS: BP 106/79; PULSE 64; O2SAT 98
== END 2017-05-06 21:19 | disposition home or self-care (01) ==
LOC: C.EDB 19:13 → C.EDD 21:19
DX: J02.9 Acute pharyngitis, unspecified (principal); F41.9 Anxiety disorder, unspecified; J45.909 Unspecified asthma, uncomplicated; K21.9 Gastro-esophageal reflux disease without esophagitis; N83.209 Unspecified ovarian cyst, unspecified side; F17.200 Nicotine dependence, unspecified, uncomplicated; Z83.3 Family history of diabetes mellitus; Z82.49 Family history of ischemic heart disease and other diseases of the circulatory system

== ENCOUNTER 2017-07-10 02:13 | Emergency (ER) | payer OTHER ==
[~2017-07-10] VITALS: Ht 175.3 cm; Wt 54.2 kg
[2017-07-10 02:17] VITALS: TEMP 36.5; Ht 175.3 cm; Wt 54.2 kg
[2017-07-10] MEDS ORDERED: IBUPROFEN 600 MG TAB ONE (02:37)
[2017-07-10] MEDS ORDERED: IBUPROFEN 600 MG TAB PO STA (02:40)
[2017-07-10 02:47] VITALS: BP 122/80; PULSE 72; O2SAT 97
--- NOTE | 2017-07-10 04:15 | EMERGENCY ROOM VISIT NOTE ---
History First contact with patient: 02:29 Chief Complaint: FACIAL PAIN/INJURY Stated Complaint: JAW LOCK OUT History of Present Illness The patient is a 32 year old female who presents to the Emergency Room with complaints of jaw dislocation and severe sharp jaw pain. The patient notes that 1 hour ago that she woke up and her jaw was dislocated. This is happened many times before. She has severe 8 out of 10 pain. She is very tearful and has not been able to reduce it herself. She is requesting to be done immediately. She denies any trauma. Patient denies numbness, chest pain, dyspnea or any other medical complaints. Review of Systems See HPI for pertinent positives & negatives. A total of 10 systems reviewed and were otherwise negative. Past Medical/Surgical History Medical Problems: (1) ACUTE APPENDICITIS NOS (2) Asthma (3) DISLOCATION JAW-CLOSED (4) Esophageal Reflux (5) Ovarian Cyst Nec/Nos Family History Cancer Diabetes mellitus FH: heart disease FHx: gallbladder disease Hypertension Pyelonephritis Social History Smoking Status: Current Every Day Smoker Alcohol Use: occasionally Drug Use: none Marital Status: in relationship Housing Status: lives with significant other Occupation Status: employed Physical Exam Vital Signs Date Time Temp Pulse Resp B/P (MAP) Pulse Ox O2 Delivery O2 Flow Rate FiO2 07/10/17 02:47 72 18 122/80 97 07/10/17 02:17 36.5 78 18 147/84 98 Room Air Physical Exam VITALS: Vitals are noted on the nurse's note and reviewed by myself. Vital signs stable. GENERAL: Pleasant female in mild distress, in no acute distress, nondiaphoretic , well-developed well-nourished. SKIN: The skin was without rashes, erythema, edema, or bruising. There is no tenting of the skin. Capillary reflex less than 2 seconds. HEAD: Normocephalic atraumatic. EARS: External auditory canals clear, tympanic membranes pearly cintron without erythema or effusion bilaterally. EYES: Pupils equal round and reactive to light and accommodation. Conjunctivae without injection, sclerae without icterus. Extraocular movements intact. NOSE: Patent, turbinates without inflammation or discharge. No sinus tenderness. MOUTH: Mucous membranes moist. Pharynx without erythema or exudate. Uvula midline. Airway patent. Tongue does not deviate. There is an obvious bilateral TMJ dislocation. NECK: Supple without nuchal rigidity. No lymphadenopathy. No thyromegaly. Cervical spine is nontender. No JVD. HEART: Regular rate and rhythm without murmurs gallops or rubs. LUNGS: Clear to auscultation bilaterally without wheezes, rales or rhonchi. No dullness to percussion. No retractions or accessory muscle use. MUSCULOSKELETAL: No muscle atrophy, erythema, or edema noted. NEURO: Patient was alert and oriented to person place and time. Normal sensation to light and sharp touch. No focal neurological deficits. Medical Decision & Procedures Medications Administered Medications (Trade) Dose Ordered Sig/Helen Route Start Time Stop Time Status Last Admin Dose Admin Ibuprofen (Motrin Tab) 600 mg STK-MED ONCE .ROUTE 07/10/17 02:37 07/10/17 02:38 DC 07/10/17 02:40 600 MG Procedure Dislocation reduction: Verbal consent obtained. The patient was placed in a sitting position and pressure was placed on the mandibles and the inferior and posterior directions. The temporal mandibular joints were reduced quite easily without palpitation. The patient had significant reduction in pain. Patient states her pain had resolved. Patient was offered x-rays and declined. ED Course Prior records reviewed and summarized as above. Triage Nursing notes reviewed. The patient's history was concerning for jaw dislocation. Differential diagnosis: Etiologies such as dislocation, sprain, strain, fracture, as well as others were entertained.. Physical examination: The physical examination was consistent with TMJ dislocation ER treatment provided: Reduction as above, Motrin On reassessment the patient felt better. Diagnostics interpreted by me: Deferred This appears to be TMJ dislocation. This is a recurrent problem for the patient. There was no trauma. Patient woke up with this. This is up multiple times. She was advised to follow-up with oral surgery and to avoid yawning or overstretching of her jaw. She is advised take anti-inflammatories. She is advised to return to the ER immediately for dislocation, severe pain, fevers, worsening signs or symptoms or as needed. By the evaluation outlined above emergent etiologies such as fracture, as well as others were deemed relatively unlikely. The pt informed about the findings as listed above. All questions were answered and pleased with the treatment. Return instructions were outlined and the patient was discharged in stable condition. Referral: The patient was referred back to oral surgery and/or primary care physician for follow-up in 2 to 3 days for a recheck of the current condition. Medical Decision As above Medication Reconcilliation Current Medication List: was personally reviewed by me Blood Pressure Screening Patient's blood pressure: Normal blood pressure Impression Primary Impression: TMJ (dislocation of temporomandibular joint) Departure Information Referrals No Doctor, Assigned (PCP) Patient Instructions My [facility] Health Problem Qualifiers Primary Impression: TMJ (dislocation of temporomandibular joint) Encounter type: initial encounter Qualified Codes: S03.00XA - Dislocation of jaw, unspecified side, initial encounter
== END 2017-07-10 02:49 | disposition home or self-care (01) ==
LOC: C.EDB 02:14
DX: S03.03XA Dislocation of jaw, bilateral, initial encounter (principal); X58.XXXA Exposure to other specified factors, initial encounter; F17.200 Nicotine dependence, unspecified, uncomplicated; Z80.9 Family history of malignant neoplasm, unspecified; Z83.3 Family history of diabetes mellitus; Z82.49 Family history of ischemic heart disease and other diseases of the circulatory system; Z83.79 Family history of other diseases of the digestive system